=== PATIENT | male | born 1955 | race Two or more races ===

== ENCOUNTER 2021-05-14 12:29 | Inpatient (IN) | payer OTHER ==
[~2021-05-14] VITALS: Ht 172.7 cm; Wt 72.5 kg
[2021-05-14] MEDS ORDERED: CLIN300C8 PO (16:21)
[2021-05-14] MEDS ORDERED: CEPH-509 PO (16:21)
[2021-05-14 16:50] LABS: Basophils # (auto) 0 10 ^3/uL (0-0.2); Basophils % (auto) 0.3 % (0.0-2.0); Eosinophils # (auto) 0.1 10 ^3/uL (0-0.8); Eosinophils % (auto) 0.9 % (0.0-7.0); Hematocrit 37.9 % (41.0-53.0); Lymphocytes # (auto) 2.4 10 ^3/uL (0.4-5.4); Mean Corpuscular Hemoglobin 33.2 pg (28.0-32.0); Mean Corpuscular Hgb Conc. 34.2 g/dL (32.0-36.0); Mean Corpuscular Volume 97.1 fL (80.0-100.0); Monocytes # (auto) 0.8 10 ^3/uL (0-1.3); Neutrophils # (auto) 6.4 10 ^3/uL (1.6-8.6); Neutrophils % (auto) 65.8 % (37.0-80.0); Nucleated Red Blood Cells % 0.1 %; Red Cell Distribution Width 13.3 % (11.8-14.3); White Blood Cell 9.8 10^3/uL (4.4-10.8)
[2021-05-14 17:12] LABS: Albumin 3.6 g/dL (3.4-5.0); BUN/Creatinine Ratio 19.2; Bilirubin, Total 0.3 mg/dL (0.2-1.0); Calcium 8.8 mg/dL (8.5-10.1); Total Protein 7.8 g/dL (6.4-8.2)
[2021-05-14 19:00] LABS: INR 0.99 (0.9-1.15); Partial Thromboplastin Time 26.8 sec (23.6-33.0)
[2021-05-14] MEDS ORDERED: ACETAMINOPHEN 325 MG TAB PO PRN (19:30)
[2021-05-14] MEDS ORDERED: ONDANSETRON HCL 4 MG/2 ML VIAL IV PRN (19:30)
[2021-05-14] MEDS ORDERED: cefTRIAXone 1GM/50ML D5W 50 ML IV ONE (19:30)
[2021-05-14] MEDS ORDERED: TEMAZEPAM 15 MG CAP PO PRN (19:30)
[2021-05-14] MEDS ORDERED: DEXTROSE (50%) 50ML SYRG IV PRN (19:30)
[2021-05-14] MEDS ORDERED: VANCOMYCIN PER PHARMACY 0 MG IV SCH (19:30)
[2021-05-14] MEDS: HYDROcodone-ACET 5/325MG TAB PO PRN (20:17)
[2021-05-14] MEDS: ACCU-CHEK COMFORT CURVE STRIP VI SCH (22:00)
[2021-05-14] MEDS: InsuLIN REG 1unit/0.01ml Soln (100units/ml) SC SCH (22:00)
[2021-05-14] MEDS: VANCOMYCIN 1GM/250ML 250 ML IV SCH (22:32)
[2021-05-14 23:00] VITALS: BP 121/77
[2021-05-15] MEDS ORDERED: METF-370 PO (01:10)
[2021-05-15 05:07] VITALS: BP 128/76
[2021-05-15] MEDS: ACCU-CHEK COMFORT CURVE STRIP VI SCH ×4 (06:20→21:17)
[2021-05-15] MEDS: InsuLIN REG 1unit/0.01ml Soln (100units/ml) SC SCH ×4 (06:22→21:18)
[2021-05-15] MEDS: HYDROcodone-ACET 5/325MG TAB PO PRN ×2 (06:47→21:28)
[2021-05-15 06:57] LABS: Basophils # (auto) 0.1 10 ^3/uL (0-0.2); Basophils % (auto) 0.6 % (0.0-2.0); Eosinophils # (auto) 0.1 10 ^3/uL (0-0.8); Eosinophils % (auto) 1.3 % (0.0-7.0); Hemoglobin 12.3 g/dL (13.5-17.5); Lymphocytes # (auto) 2.1 10 ^3/uL (0.4-5.4); Lymphocytes % (auto) 26.3 % (10.0-50.0); Mean Corpuscular Hemoglobin 33.5 pg (28.0-32.0); Mean Corpuscular Hgb Conc. 35.1 g/dL (32.0-36.0); Mean Corpuscular Volume 95.4 fL (80.0-100.0); Monocytes # (auto) 0.7 10 ^3/uL (0-1.3); Monocytes % (auto) 9.3 % (0.0-12.0); Neutrophils # (auto) 4.9 10 ^3/uL (1.6-8.6); Neutrophils % (auto) 62.5 % (37.0-80.0); Red Blood Cells 3.67 10^6/uL (4.5-5.90); Red Cell Distribution Width 13.3 % (11.8-14.3); White Blood Cell 7.8 10^3/uL (4.4-10.8)
[2021-05-15 07:09] LABS: BUN/Creatinine Ratio 22.2; Calcium 8.5 mg/dL (8.5-10.1); Potassium 3.9 mmol/L (3.5-5.1)
[2021-05-15 09:00] VITALS: BP 149/80
[2021-05-15] MEDS: RAMIPRIL 2.5 MG CAP PO SCH (09:56)
[2021-05-15] MEDS: PANTOPRAZOLE 40 MG TAB PO SCH (09:56)
[2021-05-15] MEDS: VANCOMYCIN 1GM/250ML 250 ML IV SCH (12:00)
[2021-05-15 13:00] VITALS: BP 114/69
[2021-05-15 17:00] VITALS: BP 109/64
[2021-05-15] MEDS: cefTRIAXone 1GM/50ML D5W 50 ML IV SCH (21:16)
[2021-05-15] MEDS: ATORVASTATIN 20 MG TAB PO SCH ×2 (21:17→23:20)
[2021-05-15 22:00] VITALS: BP 123/71
[2021-05-16] MEDS: VANCOMYCIN 1GM/250ML 250 ML IV SCH ×2 (01:51→15:33)
[2021-05-16] MEDS: HYDROcodone-ACET 5/325MG TAB PO PRN ×3 (04:46→20:06)
[2021-05-16 05:00] VITALS: BP 111/68
[2021-05-16] MEDS: ACCU-CHEK COMFORT CURVE STRIP VI SCH ×4 (06:18→21:59)
[2021-05-16] MEDS: InsuLIN REG 1unit/0.01ml Soln (100units/ml) SC SCH ×4 (06:22→22:00)
[2021-05-16 07:28] LABS: Potassium 3.9 mmol/L (3.5-5.1)
[2021-05-16 07:33] LABS: BUN/Creatinine Ratio 23.5; Calcium 8.6 mg/dL (8.5-10.1)
[2021-05-16 08:38] VITALS: BP 113/67
[2021-05-16] MEDS: RAMIPRIL 2.5 MG CAP PO SCH (09:58)
[2021-05-16] MEDS: PANTOPRAZOLE 40 MG TAB PO SCH (09:58)
[2021-05-16 12:33] VITALS: BP 117/74
[2021-05-16] MEDS ORDERED: metFORMIN HYDROCHLORIDE 500 MG TAB PO ONE (13:00)
[2021-05-16 16:37] VITALS: BP 113/67
[2021-05-16] MEDS: ATORVASTATIN 20 MG TAB PO SCH (21:58)
[2021-05-16] MEDS: cefTRIAXone 1GM/50ML D5W 50 ML IV SCH (21:58)
[2021-05-16 22:00] VITALS: BP 107/66
[2021-05-17] MEDS: VANCOMYCIN 1GM/250ML 250 ML IV SCH ×3 (00:20→17:28)
[2021-05-17] MEDS: MORPHINE SULFATE 4 MG/ML SYR/VIAL IV PRN ×3 (04:30→15:25)
[2021-05-17 05:00] VITALS: BP 117/72
[2021-05-17] MEDS: InsuLIN REG 1unit/0.01ml Soln (100units/ml) SC SCH ×4 (06:03→22:00)
[2021-05-17] MEDS: ACCU-CHEK COMFORT CURVE STRIP VI SCH ×4 (06:07→21:54)
[2021-05-17] MEDS ORDERED: ceFAZolin 1GM/50ML 100 ML IV ONE (06:42)
[2021-05-17] MEDS ORDERED: ROPIVACAINE 0.5% (5MG/ML) 20ML AMPULE IJ ONE (07:00)
[2021-05-17] MEDS ORDERED: ceFAZolin 1GM VL ONE (07:00)
[2021-05-17] MEDS ORDERED: MIDAZOLAM HCL 2MG/2ML 2ml VIAL (1mg/ml) ONE (07:23)
[2021-05-17] MEDS ORDERED: fentaNYL CITRATE 5 ML ONE (07:23)
[2021-05-17] MEDS ORDERED: LIDOCAINE 2% (LOCAL ANESTH.) PF 5ml SDV ONE (07:31)
[2021-05-17] MEDS ORDERED: ONDANSETRON HCL 4 MG/2 ML VIAL ONE (07:31)
[2021-05-17] MEDS ORDERED: PROPOFOL 10 MG/ML 20 ML IV ONE (07:32)
[2021-05-17] MEDS ORDERED: SILVER SULFADIAZINE 1 % TOPICAL CREAM 50GM TOP ONE (07:56)
[2021-05-17] MEDS ORDERED: ONDANSETRON HCL 4 MG/2 ML VIAL IV PRN (08:00)
[2021-05-17] MEDS ORDERED: HYDROmorphone HCL 2 MG/ML VL IV PRN ×2 (08:00)
[2021-05-17 09:00] VITALS: BP 126/74
[2021-05-17] MEDS: metFORMIN HYDROCHLORIDE 500 MG TAB PO SCH (11:17)
[2021-05-17] MEDS: PANTOPRAZOLE 40 MG TAB PO SCH (11:18)
[2021-05-17] MEDS: RAMIPRIL 2.5 MG CAP PO SCH (11:18)
[2021-05-17 13:00] VITALS: BP 136/81
[2021-05-17 17:00] VITALS: BP 140/90
[2021-05-17] MEDS: HYDROcodone-ACET 5/325MG TAB PO PRN (20:19)
[2021-05-17] MEDS: cefTRIAXone 1GM/50ML D5W 50 ML IV SCH (20:48)
[2021-05-17] MEDS: ATORVASTATIN 20 MG TAB PO SCH (21:53)
[2021-05-17 22:19] VITALS: BP 128/74
[2021-05-18] MEDS: VANCOMYCIN 1GM/250ML 250 ML IV SCH ×3 (00:02→16:49)
[2021-05-18] MEDS: MORPHINE SULFATE 4 MG/ML SYR/VIAL IV PRN ×4 (00:48→20:59)
[2021-05-18 04:03] VITALS: BP 110/64
[2021-05-18] MEDS: ACCU-CHEK COMFORT CURVE STRIP VI SCH ×4 (07:01→22:06)
[2021-05-18] MEDS: InsuLIN REG 1unit/0.01ml Soln (100units/ml) SC SCH ×4 (07:02→22:08)
[2021-05-18] MEDS: metFORMIN HYDROCHLORIDE 500 MG TAB PO SCH (08:15)
[2021-05-18] MEDS: RAMIPRIL 2.5 MG CAP PO SCH (08:15)
[2021-05-18] MEDS: PANTOPRAZOLE 40 MG TAB PO SCH (08:15)
[2021-05-18 09:18] VITALS: BP 127/75
[2021-05-18 13:00] VITALS: BP 109/63
[2021-05-18 17:00] VITALS: BP 111/71
[2021-05-18] MEDS: cefTRIAXone 1GM/50ML D5W 50 ML IV SCH (20:57)
[2021-05-18 22:00] VITALS: BP 111/65
[2021-05-18] MEDS: ATORVASTATIN 20 MG TAB PO SCH (22:06)
[2021-05-19] MEDS: VANCOMYCIN 1GM/250ML 250 ML IV SCH ×3 (00:14→16:00)
[2021-05-19 05:00] VITALS: BP 131/81
[2021-05-19] MEDS: ACCU-CHEK COMFORT CURVE STRIP VI SCH ×4 (06:27→21:33)
[2021-05-19] MEDS: InsuLIN REG 1unit/0.01ml Soln (100units/ml) SC SCH ×4 (06:28→21:35)
[2021-05-19 08:42] VITALS: BP 111/71
[2021-05-19] MEDS: RAMIPRIL 2.5 MG CAP PO SCH (10:30)
[2021-05-19] MEDS: metFORMIN HYDROCHLORIDE 500 MG TAB PO SCH (10:31)
[2021-05-19] MEDS: PANTOPRAZOLE 40 MG TAB PO SCH (10:31)
[2021-05-19 13:00] VITALS: BP_SYST 100; BP_SYST 116; BP_DIAS 59; BP_DIAS 82
[2021-05-19 17:00] VITALS: BP 102/65
[2021-05-19] MEDS: Juven Fruit Punch Powder PACKET 28.8gm PO SCH (18:37)
[2021-05-19] MEDS: Glucerna Carbsteady SHAKE Vanilla 8oz PO SCH (18:37)
[2021-05-19 20:00] VITALS: BP 113/62
[2021-05-19] MEDS: cefTRIAXone 1GM/50ML D5W 50 ML IV SCH (21:00)
[2021-05-19] MEDS: ATORVASTATIN 20 MG TAB PO SCH (21:32)
[2021-05-19] MEDS: MORPHINE SULFATE 4 MG/ML SYR/VIAL IV PRN (21:49)
[2021-05-19 22:00] VITALS: BP 113/54
[2021-05-20] VITALS (7 sets, daily range): BP systolic 102–148; BP diastolic 62–93
[2021-05-20] MEDS: VANCOMYCIN 1GM/250ML 250 ML IV SCH ×3 (00:53→16:17)
[2021-05-20] MEDS: InsuLIN REG 1unit/0.01ml Soln (100units/ml) SC SCH ×4 (06:15→21:48)
[2021-05-20] MEDS: ACCU-CHEK COMFORT CURVE STRIP VI SCH ×4 (06:21→21:41)
[2021-05-20] MEDS: HYDROcodone-ACET 5/325MG TAB PO PRN (06:22)
[2021-05-20] MEDS: Juven Fruit Punch Powder PACKET 28.8gm PO SCH ×2 (09:32→18:21)
[2021-05-20] MEDS: Glucerna Carbsteady SHAKE Vanilla 8oz PO SCH ×2 (09:32→18:21)
[2021-05-20] MEDS: PANTOPRAZOLE 40 MG TAB PO SCH (09:33)
[2021-05-20] MEDS: metFORMIN HYDROCHLORIDE 500 MG TAB PO SCH ×2 (09:33→18:20)
[2021-05-20] MEDS: RAMIPRIL 2.5 MG CAP PO SCH (09:59)
[2021-05-20] MEDS: MORPHINE SULFATE 4 MG/ML SYR/VIAL IV PRN (21:17)
[2021-05-20] MEDS: cefTRIAXone 1GM/50ML D5W 50 ML IV SCH (21:19)
[2021-05-20] MEDS: ATORVASTATIN 20 MG TAB PO SCH (21:40)
[2021-05-21] MEDS: VANCOMYCIN 1GM/250ML 250 ML IV SCH ×2 (00:21→08:00)
[2021-05-21 05:00] VITALS: BP 119/82
[2021-05-21] MEDS: ACCU-CHEK COMFORT CURVE STRIP VI SCH (06:05)
[2021-05-21] MEDS: MORPHINE SULFATE 4 MG/ML SYR/VIAL IV PRN (06:06)
[2021-05-21] MEDS: InsuLIN REG 1unit/0.01ml Soln (100units/ml) SC SCH (06:34)
[2021-05-21 06:43] LABS: BUN/Creatinine Ratio 20.3; Calcium 8.9 mg/dL (8.5-10.1); Potassium 4.2 mmol/L (3.5-5.1)
[2021-05-21] MEDS: Glucerna Carbsteady SHAKE Vanilla 8oz PO SCH (08:00)
[2021-05-21] MEDS: Juven Fruit Punch Powder PACKET 28.8gm PO SCH (08:00)
[2021-05-21] MEDS: metFORMIN HYDROCHLORIDE 500 MG TAB PO SCH (08:00)
[2021-05-21 09:00] VITALS: BP 135/74
[2021-05-21] MEDS: RAMIPRIL 2.5 MG CAP PO SCH (10:00)
[2021-05-21] MEDS: PANTOPRAZOLE 40 MG TAB PO SCH (10:00)
[2021-05-21] MEDS ORDERED: LEVO750T64 PO (11:46)
[2021-05-21] MEDS ORDERED: levoFLOXacin 250 MG TAB PO ONE (12:00)
[2021-05-21 13:00] VITALS: BP 106/57
[2021-05-21 13:19] VITALS: BP 106/57
[2021-05-21 14:10] VITALS: BP 106/57
[2021-05-21] MEDS ORDERED: HYDR1TAB97 PO (14:15)
== END 2021-05-21 17:57 | disposition home health service (06) | DRG 504 ==
LOC: ER 12:29 → OVERFLOW 19:19 → WEST WING 22:35
PROVIDERS: ADMIT Nurse Practitioner; ATTEND Internal Medicine
PROC: 0Y6R0Z0 Detachment at Right 2nd Toe, Complete, Open Approach (ICD-10-PCS; principal; 2021-05-17 07:25)
DX: S92.331A Displaced fracture of third metatarsal bone, right foot, initial encounter for closed fracture (principal); E11.52 Type 2 diabetes mellitus with diabetic peripheral angiopathy with gangrene; L03.115 Cellulitis of right lower limb; M86.8X7 Other osteomyelitis, ankle and foot; I96 Gangrene, not elsewhere classified; E11.621 Type 2 diabetes mellitus with foot ulcer; S92.321A Displaced fracture of second metatarsal bone, right foot, initial encounter for closed fracture; S99.821A Other specified injuries of right foot, initial encounter; I10 Essential (primary) hypertension; L97.514 Non-pressure chronic ulcer of other part of right foot with necrosis of bone; Z20.822 Contact with and (suspected) exposure to COVID-19; X58.XXXA Exposure to other specified factors, initial encounter; Y93.89 Activity, other specified; Y92.89 Other specified places as the place of occurrence of the external cause; Y99.8 Other external cause status; E11.69 Type 2 diabetes mellitus with other specified complication; Z79.84 Long term (current) use of oral hypoglycemic drugs
CPT/HCPCS: 36415; 71045; 73700; 80048; 80053; 80202; 82565; 82962; 83605; 84484; 85025; 85610; 85652; 85730; 86141; 87040; 87070; 87075; 87205; 93926; 96365; 96366; G0378; J0690; J0696; J1815; J2001; J2250; J2405; J2704

== ENCOUNTER 2021-05-26 09:15 | Inpatient (IN) | payer OTHER ==
[~2021-05-26] VITALS: Ht 172.7 cm; Wt 72.0 kg
[~2021-05-26 09:15] MED LIST: HYDR1TAB97 PO; LEVO750T64 PO; METF-370 PO
[2021-05-26] MEDS ORDERED: CLINDAMYCIN 900MG IV 50 ML IV ONE (12:15)
[2021-05-26] MEDS ORDERED: cefTRIAXone 1GM/50ML D5W 50 ML IV ONE (12:15)
[2021-05-26] MEDS ORDERED: HYDROcodone-ACET 10/325MG TAB PO ONE (12:30)
[2021-05-26] MEDS ORDERED: DOCUSATE SOD 100 MG CAP PO PRN (12:30)
[2021-05-26] MEDS ORDERED: ONDANSETRON ODT 4 MG TAB PO ONE (12:30)
[2021-05-26] MEDS ORDERED: ONDANSETRON HCL 4 MG/2 ML VIAL IV PRN (12:30)
[2021-05-26] MEDS ORDERED: DEXTROSE (50%) 50ML SYRG IV PRN (12:30)
[2021-05-26 13:01] LABS: Basophils # (auto) 0.1 10 ^3/uL (0-0.2); Eosinophils # (auto) 0.1 10 ^3/uL (0-0.8); Hematocrit 40.4 % (41.0-53.0); Hemoglobin 13.9 g/dL (13.5-17.5); Monocytes # (auto) 0.5 10 ^3/uL (0-1.3); Nucleated Red Blood Cells % 0.1 %
[2021-05-26 13:03] LABS: Basophils % (auto) 0.7 % (0.0-2.0); Eosinophils % (auto) 1.5 % (0.0-7.0); Lymphocytes # (auto) 2.1 10 ^3/uL (0.4-5.4); Lymphocytes % (auto) 29.6 % (10.0-50.0); Mean Corpuscular Hemoglobin 32.7 pg (28.0-32.0); Mean Corpuscular Hgb Conc. 34.3 g/dL (32.0-36.0); Mean Corpuscular Volume 95.3 fL (80.0-100.0); Monocytes % (auto) 6.7 % (0.0-12.0); Neutrophils # (auto) 4.4 10 ^3/uL (1.6-8.6); Neutrophils % (auto) 61.5 % (37.0-80.0); Red Blood Cells 4.24 10^6/uL (4.5-5.90); Red Cell Distribution Width 12.5 % (11.8-14.3); White Blood Cell 7.1 10^3/uL (4.4-10.8)
[2021-05-26 13:12] LABS: Albumin 3.8 g/dL (3.4-5.0); Calcium 9.6 mg/dL (8.5-10.1); Potassium 4.1 mmol/L (3.5-5.1)
[2021-05-26] MEDS ORDERED: NITROGLYCERIN 0.4 MG SL TAB SL PRN (13:15)
[2021-05-26] MEDS ORDERED: MORPHINE SULFATE INJECTION 2 MG/ML SYRG IV PRN (13:15)
[2021-05-26 13:16] LABS: BUN/Creatinine Ratio 19.3; Bilirubin, Total 0.3 mg/dL (0.2-1.0)
[2021-05-26 15:09] LABS: Lactic Acid w/Reflex 3.5 mmol/L (0.4-2.0)
[2021-05-26 17:00] VITALS: BP 109/65
[2021-05-26] MEDS: InsuLIN REG 1unit/0.01ml Soln (100units/ml) SC SCH ×2 (17:00→21:00)
[2021-05-26] MEDS ORDERED: METF-490 PO (17:14)
[2021-05-26] MEDS ORDERED: ASPI-543 PO (17:14)
[2021-05-26] MEDS: ACCU-CHEK COMFORT CURVE STRIP VI SCH ×2 (17:24→21:00)
[2021-05-26] MEDS: ASCORBIC ACID 500 MG TAB PO SCH (21:00)
[2021-05-26] MEDS: CLINDAMYCIN 300MG IV 50 ML IV SCH (21:00)
[2021-05-26 21:38] VITALS: BP 119/76
[2021-05-26] MEDS ORDERED: HEPARIN SODIUM (PORCINE) 5000 UNITS/ML 1ML VIAL SC SCH (22:00)
[2021-05-26] MEDS: MORPHINE SULFATE 4 MG/ML SYR/VIAL IV PRN (23:56)
[2021-05-27 04:41] VITALS: BP 139/73
[2021-05-27 04:43] LABS: Basophils # (auto) 0.1 10 ^3/uL (0-0.2); Basophils % (auto) 0.9 % (0.0-2.0); Eosinophils # (auto) 0.2 10 ^3/uL (0-0.8); Eosinophils % (auto) 3.1 % (0.0-7.0); Hematocrit 36.3 % (41.0-53.0); Hemoglobin 12.7 g/dL (13.5-17.5); Lymphocytes # (auto) 2.7 10 ^3/uL (0.4-5.4); Lymphocytes % (auto) 41.7 % (10.0-50.0); Mean Corpuscular Hemoglobin 32.8 pg (28.0-32.0); Mean Corpuscular Hgb Conc. 34.9 g/dL (32.0-36.0); Mean Corpuscular Volume 93.8 fL (80.0-100.0); Monocytes # (auto) 0.6 10 ^3/uL (0-1.3); Monocytes % (auto) 9.8 % (0.0-12.0); Neutrophils # (auto) 2.9 10 ^3/uL (1.6-8.6); Neutrophils % (auto) 44.5 % (37.0-80.0); Nucleated Red Blood Cells % 0.1 %; Red Blood Cells 3.87 10^6/uL (4.5-5.90); Red Cell Distribution Width 12.8 % (11.8-14.3); White Blood Cell 6.5 10^3/uL (4.4-10.8)
[2021-05-27 05:03] LABS: Calcium 8.8 mg/dL (8.5-10.1); Potassium 3.7 mmol/L (3.5-5.1)
[2021-05-27 05:06] LABS: Albumin 3.2 g/dL (3.4-5.0); BUN/Creatinine Ratio 27.3
[2021-05-27 05:09] LABS: Bilirubin, Total 0.2 mg/dL (0.2-1.0); Total Protein 6.7 g/dL (6.4-8.2)
[2021-05-27] MEDS: CLINDAMYCIN 300MG IV 50 ML IV SCH (05:54)
[2021-05-27] MEDS: ACCU-CHEK COMFORT CURVE STRIP VI SCH ×4 (06:01→22:56)
[2021-05-27] MEDS: InsuLIN REG 1unit/0.01ml Soln (100units/ml) SC SCH ×4 (06:01→22:00)
[2021-05-27 08:52] VITALS: BP 128/75
[2021-05-27] MEDS ORDERED: cefTRIAXone 1GM/50ML D5W 50 ML IV SCH (09:00)
[2021-05-27] MEDS: ZINC SULFATE 220mg CAP or TAB PO SCH (09:53)
[2021-05-27] MEDS: MULTIPLE VITAMIN TAB PO SCH (09:54)
[2021-05-27] MEDS: ENOXAPARIN SOD 40 MG/0.4 ML SYRINGE SC SCH (09:54)
[2021-05-27] MEDS: ASCORBIC ACID 500 MG TAB PO SCH ×2 (09:54→22:56)
[2021-05-27] MEDS ORDERED: FAMOTIDINE (10MG/ML) 2ML VL IV SCH (10:00)
[2021-05-27] MEDS ORDERED: VANCOMYCIN PER PHARMACY 0 MG IV SCH (11:00)
[2021-05-27] MEDS ORDERED: VANCOMYCIN 1GM/250ML 250 ML IV ONE (12:30)
[2021-05-27 13:00] VITALS: BP 141/80
[2021-05-27] MEDS: VANCOMYCIN 1GM/250ML 250 ML IV SCH ×2 (13:00→22:57)
[2021-05-27] MEDS: MORPHINE SULFATE 4 MG/ML SYR/VIAL IV PRN (13:53)
[2021-05-27 16:50] VITALS: BP 113/70
[2021-05-27 20:00] VITALS: BP 112/74
[2021-05-28] MEDS: MORPHINE SULFATE 4 MG/ML SYR/VIAL IV PRN ×2 (00:01→21:27)
[2021-05-28 05:27] VITALS: BP 117/72
[2021-05-28 06:45] LABS: Basophils # (auto) 0.1 10 ^3/uL (0-0.2); Basophils % (auto) 1.2 % (0.0-2.0); Eosinophils # (auto) 0.2 10 ^3/uL (0-0.8); Eosinophils % (auto) 3.4 % (0.0-7.0); Hematocrit 36.6 % (41.0-53.0); Hemoglobin 12.7 g/dL (13.5-17.5); Lymphocytes # (auto) 2.4 10 ^3/uL (0.4-5.4); Lymphocytes % (auto) 43.7 % (10.0-50.0); Mean Corpuscular Hemoglobin 32.8 pg (28.0-32.0); Mean Corpuscular Hgb Conc. 34.8 g/dL (32.0-36.0); Mean Corpuscular Volume 94.2 fL (80.0-100.0); Monocytes # (auto) 0.5 10 ^3/uL (0-1.3); Monocytes % (auto) 8.4 % (0.0-12.0); Neutrophils # (auto) 2.4 10 ^3/uL (1.6-8.6); Neutrophils % (auto) 43.3 % (37.0-80.0); Nucleated Red Blood Cells % 0.1 %; Red Blood Cells 3.88 10^6/uL (4.5-5.90); Red Cell Distribution Width 12.7 % (11.8-14.3); White Blood Cell 5.4 10^3/uL (4.4-10.8)
[2021-05-28 06:59] LABS: Magnesium 1.6 mg/dL (1.6-2.6); Potassium 3.9 mmol/L (3.5-5.1)
[2021-05-28 07:05] LABS: Albumin 3.1 g/dL (3.4-5.0); BUN/Creatinine Ratio 17.6; Bilirubin, Total 0.3 mg/dL (0.2-1.0); CRP High Sensitivity 0.19 mg/dL (< 0.3); Calcium 8.7 mg/dL (8.5-10.1); Phosphorus 4.2 mg/dL (2.5-4.90); Total Protein 6.6 g/dL (6.4-8.2)
[2021-05-28] MEDS: InsuLIN REG 1unit/0.01ml Soln (100units/ml) SC SCH ×4 (07:12→21:20)
[2021-05-28] MEDS: ACCU-CHEK COMFORT CURVE STRIP VI SCH ×3 (07:17→17:00)
[2021-05-28 09:00] VITALS: BP 114/76
[2021-05-28] MEDS: ZINC SULFATE 220mg CAP or TAB PO SCH (09:41)
[2021-05-28] MEDS: ASCORBIC ACID 500 MG TAB PO SCH ×2 (09:41→21:18)
[2021-05-28] MEDS: ASPirin-EC 81 mg tab PO SCH (09:41)
[2021-05-28] MEDS: MULTIPLE VITAMIN TAB PO SCH (09:41)
[2021-05-28] MEDS: ENOXAPARIN SOD 40 MG/0.4 ML SYRINGE SC SCH (09:42)
[2021-05-28] MEDS: VANCOMYCIN 1GM/250ML 250 ML IV SCH ×3 (09:43→18:58)
[2021-05-28] MEDS: CEFTRIAXONE SODIUM 2 GM in D5W 5% 50 ML IV SCH (10:00)
[2021-05-28 11:33] LABS: INR 1.11 (0.9-1.15); Partial Thromboplastin Time 32.8 sec (23.6-33.0)
[2021-05-28] MEDS ORDERED: VAN500I IV (11:55)
[2021-05-28] MEDS ORDERED: ROC2INJ10 IV (11:55)
[2021-05-28 13:00] VITALS: BP 118/75
[2021-05-28] MEDS ORDERED: LIDOCAINE 1% (LOCAL ANESTH.) PF 5ml SDV ID ONE (15:30)
[2021-05-28 16:43] VITALS: BP 119/71
[2021-05-28 22:00] VITALS: BP 126/80
[2021-05-29] MEDS: SODIUM CHLOR 0.9% PF (SALINE LOCK) 10ML VIAL/SYR IV SCH ×2 (02:35→09:19)
[2021-05-29] MEDS: ACCU-CHEK COMFORT CURVE STRIP VI SCH ×3 (02:36→17:00)
[2021-05-29] MEDS: VANCOMYCIN 1GM/250ML 250 ML IV SCH ×3 (02:38→19:04)
[2021-05-29 05:00] VITALS: BP 102/71
[2021-05-29 06:11] LABS: Potassium 3.9 mmol/L (3.5-5.1)
[2021-05-29 06:13] LABS: BUN/Creatinine Ratio 17.9
[2021-05-29] MEDS: InsuLIN REG 1unit/0.01ml Soln (100units/ml) SC SCH ×4 (06:25→21:31)
[2021-05-29 09:13] VITALS: BP 118/72
[2021-05-29] MEDS: CEFTRIAXONE SODIUM 2 GM in D5W 5% 50 ML IV SCH (09:19)
[2021-05-29] MEDS: ZINC SULFATE 220mg CAP or TAB PO SCH (09:19)
[2021-05-29] MEDS: ASCORBIC ACID 500 MG TAB PO SCH ×2 (09:20→21:30)
[2021-05-29] MEDS: MULTIPLE VITAMIN TAB PO SCH (09:20)
[2021-05-29] MEDS: ASPirin-EC 81 mg tab PO SCH (09:20)
[2021-05-29] MEDS: ENOXAPARIN SOD 40 MG/0.4 ML SYRINGE SC SCH (09:21)
[2021-05-29] MEDS: ACETAMINOPHEN 325 MG TAB PO PRN (09:38)
[2021-05-29 12:59] VITALS: BP 112/70
[2021-05-29 16:39] VITALS: BP 115/70
[2021-05-29] MEDS: HYDROcodone-ACET 5/325MG TAB PO PRN (21:29)
[2021-05-29 22:33] VITALS: BP 119/63
[2021-05-30] MEDS: SODIUM CHLOR 0.9% PF (SALINE LOCK) 10ML VIAL/SYR IV SCH ×3 (02:21→22:19)
[2021-05-30] MEDS: ACCU-CHEK COMFORT CURVE STRIP VI SCH ×5 (02:21→22:20)
[2021-05-30] MEDS: VANCOMYCIN 1GM/250ML 250 ML IV SCH ×3 (03:16→17:57)
[2021-05-30 05:00] VITALS: BP 123/71
[2021-05-30] MEDS: InsuLIN REG 1unit/0.01ml Soln (100units/ml) SC SCH ×4 (06:19→22:00)
[2021-05-30] MEDS: ENOXAPARIN SOD 40 MG/0.4 ML SYRINGE SC SCH (10:00)
[2021-05-30] MEDS: ASCORBIC ACID 500 MG TAB PO SCH ×2 (10:00→22:20)
[2021-05-30] MEDS: ZINC SULFATE 220mg CAP or TAB PO SCH (10:00)
[2021-05-30] MEDS: CEFTRIAXONE SODIUM 2 GM in D5W 5% 50 ML IV SCH (10:00)
[2021-05-30] MEDS: MULTIPLE VITAMIN TAB PO SCH (10:00)
[2021-05-30] MEDS: ASPirin-EC 81 mg tab PO SCH (10:00)
[2021-05-30 13:02] VITALS: BP 115/74
[2021-05-30 16:54] VITALS: BP 122/87
[2021-05-30 22:00] VITALS: BP 124/75
[2021-05-31 05:00] VITALS: BP 116/71
[2021-05-31 06:16] LABS: Potassium 4.2 mmol/L (3.5-5.1)
[2021-05-31 06:19] LABS: BUN/Creatinine Ratio 18.6; Calcium 8.8 mg/dL (8.5-10.1)
[2021-05-31] MEDS: ACCU-CHEK COMFORT CURVE STRIP VI SCH ×4 (06:41→22:00)
[2021-05-31] MEDS: InsuLIN REG 1unit/0.01ml Soln (100units/ml) SC SCH ×4 (06:41→22:00)
[2021-05-31 08:15] VITALS: BP 128/74
[2021-05-31] MEDS: SODIUM CHLOR 0.9% PF (SALINE LOCK) 10ML VIAL/SYR IV SCH ×2 (11:04→22:00)
[2021-05-31] MEDS: CEFTRIAXONE SODIUM 2 GM in D5W 5% 50 ML IV SCH (11:04)
[2021-05-31] MEDS: MULTIPLE VITAMIN TAB PO SCH (11:05)
[2021-05-31] MEDS: ASCORBIC ACID 500 MG TAB PO SCH ×2 (11:05→22:00)
[2021-05-31] MEDS: ENOXAPARIN SOD 40 MG/0.4 ML SYRINGE SC SCH (11:05)
[2021-05-31] MEDS: ASPirin-EC 81 mg tab PO SCH (11:05)
[2021-05-31] MEDS: ZINC SULFATE 220mg CAP or TAB PO SCH (11:05)
[2021-05-31] MEDS: VANCOMYCIN 1GM/250ML 250 ML IV SCH ×3 (11:53→20:00)
[2021-05-31 12:15] VITALS: BP 122/70
[2021-05-31 16:20] VITALS: BP 109/72
[2021-05-31] MEDS: Juven Fruit Punch Powder PACKET 28.8gm PO SCH (18:00)
[2021-05-31 22:00] VITALS: BP 109/68
[2021-05-31] MEDS: HYDROcodone-ACET 5/325MG TAB PO PRN (23:52)
[2021-06-01] MEDS: VANCOMYCIN 1GM/250ML 250 ML IV SCH ×3 (04:12→20:30)
[2021-06-01 04:38] VITALS: BP 109/66
[2021-06-01] MEDS: InsuLIN REG 1unit/0.01ml Soln (100units/ml) SC SCH ×4 (06:18→21:54)
[2021-06-01] MEDS: ACCU-CHEK COMFORT CURVE STRIP VI SCH ×4 (06:19→21:50)
[2021-06-01 09:00] VITALS: BP 108/64
[2021-06-01] MEDS: Juven Fruit Punch Powder PACKET 28.8gm PO SCH ×2 (09:49→17:59)
[2021-06-01] MEDS: CEFTRIAXONE SODIUM 2 GM in D5W 5% 50 ML IV SCH (09:49)
[2021-06-01] MEDS: ZINC SULFATE 220mg CAP or TAB PO SCH (09:49)
[2021-06-01] MEDS: SODIUM CHLOR 0.9% PF (SALINE LOCK) 10ML VIAL/SYR IV SCH ×2 (09:49→21:50)
[2021-06-01] MEDS: ASCORBIC ACID 500 MG TAB PO SCH ×2 (09:50→22:00)
[2021-06-01] MEDS: MULTIPLE VITAMIN TAB PO SCH (09:50)
[2021-06-01] MEDS: ASPirin-EC 81 mg tab PO SCH (09:50)
[2021-06-01] MEDS: ENOXAPARIN SOD 40 MG/0.4 ML SYRINGE SC SCH (09:50)
[2021-06-01 12:50] VITALS: BP 117/69
[2021-06-01 17:00] VITALS: BP 131/73
[2021-06-01] MEDS: INSULIN NPH Isophane (HUMAN) 1unit/0.01ml Susp(100units/ml) SC SCH (17:58)
[2021-06-01 22:00] VITALS: BP 111/63
[2021-06-01] MEDS: HYDROcodone-ACET 5/325MG TAB PO PRN (22:39)
[2021-06-02] VITALS (7 sets, daily range): BP systolic 108–138; BP diastolic 62–82
[2021-06-02] MEDS: VANCOMYCIN 1GM/250ML 250 ML IV SCH ×3 (04:17→22:45)
[2021-06-02] MEDS: InsuLIN REG 1unit/0.01ml Soln (100units/ml) SC SCH ×4 (07:00→22:59)
[2021-06-02] MEDS: ACCU-CHEK COMFORT CURVE STRIP VI SCH ×4 (07:11→22:51)
[2021-06-02] MEDS ORDERED: INSULIN NPH Isophane (HUMAN) 1unit/0.01ml Susp(100units/ml) SC SCH (08:00)
[2021-06-02 10:18] LABS: Basophils # (auto) 0.1 10 ^3/uL (0-0.2); Basophils % (auto) 1.2 % (0.0-2.0); Eosinophils # (auto) 0.1 10 ^3/uL (0-0.8); Eosinophils % (auto) 2.2 % (0.0-7.0); Hematocrit 38.5 % (41.0-53.0); Hemoglobin 13.2 g/dL (13.5-17.5); Lymphocytes % (auto) 34.4 % (10.0-50.0); Mean Corpuscular Hemoglobin 32.5 pg (28.0-32.0); Mean Corpuscular Hgb Conc. 34.2 g/dL (32.0-36.0); Mean Corpuscular Volume 95.1 fL (80.0-100.0); Monocytes # (auto) 0.4 10 ^3/uL (0-1.3); Monocytes % (auto) 7.3 % (0.0-12.0); Neutrophils # (auto) 3.2 10 ^3/uL (1.6-8.6); Neutrophils % (auto) 54.9 % (37.0-80.0); Nucleated Red Blood Cells % 0.1 %; Red Blood Cells 4.05 10^6/uL (4.5-5.90); Red Cell Distribution Width 12.6 % (11.8-14.3); White Blood Cell 5.7 10^3/uL (4.4-10.8)
[2021-06-02 10:23] LABS: Potassium 4.2 mmol/L (3.5-5.1)
[2021-06-02 10:28] LABS: BUN/Creatinine Ratio 16.9; Calcium 8.7 mg/dL (8.5-10.1)
[2021-06-02] MEDS: CEFTRIAXONE SODIUM 2 GM in D5W 5% 50 ML IV SCH (10:33)
[2021-06-02] MEDS: Juven Fruit Punch Powder PACKET 28.8gm PO SCH ×2 (10:33→18:19)
[2021-06-02] MEDS: MULTIPLE VITAMIN TAB PO SCH (10:34)
[2021-06-02] MEDS: ASPirin-EC 81 mg tab PO SCH (10:34)
[2021-06-02] MEDS: SODIUM CHLOR 0.9% PF (SALINE LOCK) 10ML VIAL/SYR IV SCH ×2 (10:34→22:50)
[2021-06-02] MEDS: ZINC SULFATE 220mg CAP or TAB PO SCH (10:34)
[2021-06-02] MEDS: ASCORBIC ACID 500 MG TAB PO SCH ×2 (10:34→22:50)
[2021-06-02] MEDS: ENOXAPARIN SOD 40 MG/0.4 ML SYRINGE SC SCH (10:34)
[2021-06-02] MEDS: INSULIN NPH Isophane (HUMAN) 1unit/0.01ml Susp(100units/ml) SC SCH ×2 (12:23→17:30)
[2021-06-02] MEDS: HYDROcodone-ACET 5/325MG TAB PO PRN (22:55)
[2021-06-03 05:00] VITALS: BP 114/71
[2021-06-03] MEDS: VANCOMYCIN 1GM/250ML 250 ML IV SCH ×2 (05:31→14:00)
[2021-06-03] MEDS: ACCU-CHEK COMFORT CURVE STRIP VI SCH ×2 (06:40→11:30)
[2021-06-03] MEDS: InsuLIN REG 1unit/0.01ml Soln (100units/ml) SC SCH ×2 (06:49→13:19)
[2021-06-03] MEDS: INSULIN NPH Isophane (HUMAN) 1unit/0.01ml Susp(100units/ml) SC SCH (08:00)
[2021-06-03] MEDS: ACETAMINOPHEN 325 MG TAB PO PRN (08:08)
[2021-06-03] MEDS: Juven Fruit Punch Powder PACKET 28.8gm PO SCH (08:09)
[2021-06-03 08:40] VITALS: BP 150/86
[2021-06-03] MEDS: CEFTRIAXONE SODIUM 2 GM in D5W 5% 50 ML IV SCH (09:46)
[2021-06-03] MEDS: ASPirin-EC 81 mg tab PO SCH (09:47)
[2021-06-03] MEDS: ASCORBIC ACID 500 MG TAB PO SCH (09:47)
[2021-06-03] MEDS: ENOXAPARIN SOD 40 MG/0.4 ML SYRINGE SC SCH (09:47)
[2021-06-03] MEDS: MULTIPLE VITAMIN TAB PO SCH (09:47)
[2021-06-03] MEDS: ZINC SULFATE 220mg CAP or TAB PO SCH (09:47)
[2021-06-03] MEDS: SODIUM CHLOR 0.9% PF (SALINE LOCK) 10ML VIAL/SYR IV SCH (09:48)
[2021-06-03 12:35] VITALS: BP 136/73
== END 2021-06-03 17:21 | DRG 638 ==
LOC: ER 09:15 → OVERFLOW 13:13 → WEST WING 15:49
PROVIDERS: ADMIT Nurse Practitioner Family; ATTEND Family Medicine
PROC: 02HV33Z Insertion of Infusion Device into Superior Vena Cava, Percutaneous Approach (ICD-10-PCS; principal; 2021-05-28)
PROC: B548ZZA Ultrasonography of Superior Vena Cava, Guidance (ICD-10-PCS; 2021-05-28)
DX: E11.69 Type 2 diabetes mellitus with other specified complication (principal); M86.8X7 Other osteomyelitis, ankle and foot; L03.115 Cellulitis of right lower limb; E11.621 Type 2 diabetes mellitus with foot ulcer; E11.65 Type 2 diabetes mellitus with hyperglycemia; I10 Essential (primary) hypertension; L97.519 Non-pressure chronic ulcer of other part of right foot with unspecified severity; M79.89 Other specified soft tissue disorders; Z20.822 Contact with and (suspected) exposure to COVID-19; S92.331A Displaced fracture of third metatarsal bone, right foot, initial encounter for closed fracture; X58.XXXA Exposure to other specified factors, initial encounter; Z89.421 Acquired absence of other right toe(s); Y93.89 Activity, other specified; Y92.89 Other specified places as the place of occurrence of the external cause; Y99.8 Other external cause status
CPT/HCPCS: 36415; 36569; 71045; 73700; 73718; 80048; 80053; 80061; 80202; 82962; 83036; 83605; 83735; 84100; 85025; 85610; 85652; 85730; 86141; 87040; 87081; 96365; 96368; G0378; J0696; J1815; J3490; J7060; Q0162